=== PATIENT | male | born 1980 | race Caucasian/White ===

== ENCOUNTER 2022-09-12 23:12 | Emergency (ER) | payer BC ==
[~2022-09-12] VITALS: Ht 175.3 cm; Wt 90.7 kg
== END 2022-09-13 | disposition home or self-care (01) ==
LOC: ER 23:12
DX: F10.129 Alcohol abuse with intoxication, unspecified (principal)

== ENCOUNTER 2022-09-17 05:19 | Emergency (ER) | payer BC ==
[~2022-09-17] VITALS: Ht 177.8 cm; Wt 86.2 kg
== END 2022-09-17 14:23 | disposition home or self-care (01) ==
LOC: ER 05:19
DX: F10.929 Alcohol use, unspecified with intoxication, unspecified (principal); Z87.828 Personal history of other (healed) physical injury and trauma